=== PATIENT | male | born 1995 | race Caucasian/White ===

== ENCOUNTER 2017-09-20 12:30 | Emergency (ER) | payer OTHER ==
[~2017-09-20] VITALS: Ht 185.4 cm; Wt 94.0 kg
[~2017-09-20 12:30] MED LIST: CLINDAMYCIN IV 300 MG in DEXTROSE 5% 50ML 50 ML IV SCH
[2017-09-20 12:34] VITALS: Ht 185.4 cm; Wt 94.0 kg
[2017-09-20] MEDS ORDERED: METHYLPREDNISOLONE 125 MG VIAL IV STA (12:43)
[2017-09-20] MEDS ORDERED: SODIUM CHLORIDE 0.9% 1000ML 2,000 ML IV STA (12:44)
[2017-09-20] MEDS ORDERED: CLINDAMYCIN 600 MG/54 ML D5W IV ONE (12:45)
[2017-09-20 13:08] LABS: BASO % 0.2 %; BASO ABS # 0.02 K/uL (0-0.2); EOS % 0.4 %; EOS ABS # 0.03 K/uL (0-0.5); HEMATOCRIT 46.6 % (42-52); IG# 0.04 K/uL (0.00-0.02); LYMPH % 18.1 %; LYMPH ABS # 1.47 K/uL (1.2-3.4); MEAN CELL VOLUME 88.4 fL (80-100); MEAN CORPUSCULAR HEMOGLOBIN 30.4 pg (25-34); MEAN CORPUSCULAR HGB CONC 34.3 g/dl (32-36); MEAN PLATELET VOLUME 9.3 fL (7.4-10.4); MONO % 15.3 %; MONO ABS # 1.24 K/uL (0.11-0.59); NEUT % 65.5 %; PLATELET COUNT 183 K/uL (130-400); RED CELL DISTRIBUTION WIDTH CV 12.5 % (11.5-14.5); RED CELL DISTRIBUTION WIDTH SD 39.9 fL (36.4-46.3)
[2017-09-20] MEDS ORDERED: CLIN300C2 PO (13:09)
[2017-09-20] MEDS ORDERED: DOXY100C76 PO (13:09)
[2017-09-20 13:23] LABS: CALCIUM 9.4 mg/dl (8.5-10.1); CREATININE 1.17 mg/dl (0.60-1.40); POTASSIUM 3.9 mmol/L (3.5-5.1)
[2017-09-20 14:11] VITALS: BP 129/72; PULSE 74; TEMP 36.7; O2SAT 98
--- NOTE | 2017-09-20 15:37 | EMERGENCY ROOM VISIT NOTE ---
History Report prepared by Abhay: Jack Jenkins Under the Supervision of: Dr. Augustus Florentino D.O. First contact with patient: 12:36 Chief Complaint: THROAT PAIN/INJURY Stated Complaint: THROAT PAIN History of Present Illness The patient is a 22 year old male who presents to the Emergency Room with complaints of worsening sore throat beginning nine days ago. The patient was seen at the sports medicine clinic for similar symptoms last week, and had a positive strep-test. He was given antibiotics. His symptoms worsened three days ago. The patient also complains of left sided ear ache, and jaw pain. His additional symptoms began three days ago. He notes that the pain is a constant throbbing in the back of his throat. He has had very little to eat and drink in the past day. Pt denies headache, change in vision, fevers, chest pain, shortness of breath, nausea, vomiting, diarrhea, pain with urination, and melena. Source of History: patient Onset: Nine days ago Position: throat Quality: other (sore) Timing: worsening Associated Symptoms: No fevers, No headache, No chest pain, No SOB, No nausea, No vomiting, No melena, No diarrhea, No urinary symptoms Note: Positive: jaw pain, left ear pain. Review of Systems See HPI for pertinent positives & negatives. A total of 10 systems reviewed and were otherwise negative. Past Medical & Surgical Medical Problems: (1) No Known Active Medical Problems Family History No pertinent family history stated. Social History Occupation Status: [email or web address] Current/Historical Medications Scheduled Clindamycin Hcl (Cleocin), 600 MG PO Q8 Doxycycline Monohydrate (Monodox), Unknown Dose PO BID Allergies Coded Allergies: Amoxicillin (Verified Allergy, Unknown, UNKNOWN, 09/20/17) Physical Exam Vital Signs Date Time Temp Pulse Resp B/P (MAP) Pulse Ox O2 Delivery O2 Flow Rate FiO2 09/20/17 14:11 36.7 74 16 129/72 98 09/20/17 12:34 36.7 74 16 129/72 98 Physical Exam GENERAL: Sitting up in bed, alert, well appearing, well nourished, no distress, non-toxic EYE EXAM: normal conjunctiva. OROPHARYNX: Able to open mouth slightly. Diffuse swelling and erythema to the oropharynx. Left tonsil appears larger than right on palpation (difficult to visualize). NECK: + Anterior cervical adenopathy LUNGS: Clear to auscultation. Normal chest wall mechanics HEART: no murmurs, S1 normal and S2 normal ABDOMEN: abdomen soft, non-tender, normo-active bowel sounds, no masses, no rebound or guarding. UPPER EXTREMITIES: upper extremities are grossly normal. LOWER EXTREMITIES: No pitting edema. NEURO EXAM: Normal sensorium, cranial nerves II-XII grossly intact, normal speech, no gross weakness of arms, no gross weakness of legs. Medical Decision & Procedures Laboratory Results 09/20/17 13:02 Red Blood Count 5.27, Mean Corpuscular Volume 88.4, Mean Corpuscular Hemoglobin 30.4, Mean Corpuscular Hemoglobin Concent 34.3, Mean Platelet Volume 9.3, Neutrophils (%) (Auto) 65.5, Lymphocytes (%) (Auto) 18.1, Monocytes (%) (Auto) 15.3, Eosinophils (%) (Auto) 0.4, Basophils (%) (Auto) 0.2, Neutrophils # (Auto ) 5.30, Lymphocytes # (Auto) 1.47, Monocytes # (Auto) 1.24, Eosinophils # (Auto ) 0.03, Basophils # (Auto) 0.02 09/20/17 13:02 Test 09/20/17 13:02 White Blood Count 8.10 K/uL (4.8-10.8) Red Blood Count 5.27 M/uL (4.7-6.1) Hemoglobin 16.0 g/dL (14.0-18.0) Hematocrit 46.6 % (42-52) Mean Corpuscular Volume 88.4 fL (80-100) Mean Corpuscular Hemoglobin 30.4 pg (25-34) Mean Corpuscular Hemoglobin Concent 34.3 g/dl (32-36) Platelet Count 183 K/uL (130-400) Mean Platelet Volume 9.3 fL (7.4-10.4) Neutrophils (%) (Auto) 65.5 % Lymphocytes (%) (Auto) 18.1 % Monocytes (%) (Auto) 15.3 % Eosinophils (%) (Auto) 0.4 % Basophils (%) (Auto) 0.2 % Neutrophils # (Auto) 5.30 K/uL (1.4-6.5) Lymphocytes # (Auto) 1.47 K/uL (1.2-3.4) Monocytes # (Auto) 1.24 K/uL (0.11-0.59) Eosinophils # (Auto) 0.03 K/uL (0-0.5) Basophils # (Auto) 0.02 K/uL (0-0.2) RDW Standard Deviation 39.9 fL (36.4-46.3) RDW Coefficient of Variation 12.5 % (11.5-14.5) Immature Granulocyte % (Auto) 0.5 % Immature Granulocyte # (Auto) 0.04 K/uL (0.00-0.02) Anion Gap 7.0 mmol/L (3-11) Est Creatinine Clear Calc Drug Dose 112.8 ml/min Estimated GFR () 102.7 Estimated GFR (Non- 88.6 BUN/Creatinine Ratio 14.4 (10-20) Calcium Level 9.4 mg/dl (8.5-10.1) Laboratory results per my review. Medications Administered Medications (Trade) Dose Ordered Sig/Daniel Route Start Time Stop Time Status Last Admin Dose Admin Methylprednisolone Sodium Succinate (Solu-Medrol IV) 125 mg NOW STAT IV 09/20/17 12:43 09/20/17 12:44 DC 09/20/17 13:28 125 MG Sodium Chloride 2,000 ml @ 999 mls/hr Q2H1M STAT IV 09/20/17 12:44 09/20/17 14:44 DC 09/20/17 13:29 999 MLS/HR Clindamycin Phosphate 300 mg/ Dextrose 52 ml @ 104 mls/hr 1230 IV 09/20/17 12:30 09/20/17 14:44 DC 09/20/17 13:28 104 MLS/HR ED Course ED COURSE: Vital signs were reviewed and appear normal. The patients medical record was reviewed The above diagnostic studies were performed and reviewed. ED treatments and interventions as stated above. 1238: The patient was evaluated in room B5. A complete history and physical examination was performed. 1230: Ordered Clindamycin Phosphate 300 mg/Dextrose 52 mL @ 104 mL/hr IV, Sodium Chloride 2000 ml @ 999 mls/hr IV. 1243: Ordered Solu-Medrol 125 mg IV, Sodium Chloride 2000 ml @ 999 mls/hr IV. 1350: Upon reevaluation, the patient is resting comfortably. I discussed my findings with the patient and he understands and agrees with the treatment plan. Based on the patients age, coexisting illnesses, exam and lab findings the decision to treat as an outpatient was made. The patient remained stable while under my care. The patient appeared well at the time of discharge. Medical Decision Differential diagnosis includes etiologies such as viral syndrome, tonsillitis, streptococcal pharyngitis, mononucleosis, peritonsillar abscess, retropharyngeal abscess, otitis, pneumonia, influenza, as well as others were entertained. Patient is a 22-year-old male that presents the ER referred in for further evaluation bilateral tonsillitis with increased swelling in . Patient has been on antibiotics. Sore throat started last Monday and was significantly worsened this past Monday. CBC and BMP were unremarkable. Patient was given IV fluids, antibiotics and steroids. I discussed case with ENT as I was unable to visualize the posterior pharynx due to significant pain with opening jaw. He does appear to have fullness on palpation on the left side of his posterior pharynx in comparison to the right. I am concerned for possible [employer]. Did discuss with ENT. We will evaluate him in the office. 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 Medication Reconcilliation Current Medication List: was personally reviewed by me Blood Pressure Screening Patient's blood pressure: Normal blood pressure Blood pressure disposition: Did not require urgent referral Consults Time Called: 1320 Consulting Physician: Dr. Kei Clark ENT Returned Call: 1325 I reviewed the patient's case with Dr. Choudhury. He recommends calling Dr. Avery, as he is on-call. Additional Consults: Time Called: 1326 Consulted Physician: Dr. Bennie LUNSFORD Returned Call: [phone] Additional Comments: I reviewed the patient's case with Dr. Avery. He recommends calling Dr. Montague. Time Called: 1335 Consulted Physician: Dr. Montague - ENT Returned Call: 1331 Additional Comments: I reviewed the patient's case with Dr. Montague. He will see the patient in his office now. Impression Primary Impression: Acute tonsillitis Scribe Attestation The scribe's documentation has been prepared under my direction and personally reviewed by me in its entirety. I confirm that the note above accurately reflects all work, treatment, procedures, and medical decision making performed by me. Departure Information Dispostion Home / Self-Care Forms HOME CARE DOCUMENTATION FORM, IMPORTANT VISIT INFORMATION, WORK / SCHOOL INSTRUCTIONS Patient Instructions My [facility] Additional Instructions Please go directly to Dr. Montague office as they will see you this afternoon. Problem Qualifiers Primary Impression: Acute tonsillitis Pharyngitis/tonsillitis etiology: unspecified etiology Qualified Codes: J03.90 - Acute tonsillitis, unspecified
== END 2017-09-20 14:12 | disposition home or self-care (01) ==
LOC: C.EDB 12:32
DX: J03.90 Acute tonsillitis, unspecified (principal); Z88.1 Allergy status to other antibiotic agents